=== PATIENT | female | born 1995 | race Caucasian/White ===

== ENCOUNTER 2019-09-29 12:37 | Emergency (ER) | payer OTHER ==
[~2019-09-29] VITALS: Ht 165.1 cm; Wt 68.2 kg
[2019-09-29] MEDS ORDERED: anxiety med (12:51)
[2019-09-29] MEDS ORDERED: sleeping med (12:51)
[2019-09-29] MEDS ORDERED: TETRACAINE 0.5% OPHTH SOLN 4ML OS ONE (13:15)
[2019-09-29 14:24] VITALS: BP 119/65
== END 2019-09-29 14:26 | disposition home or self-care (01) ==
LOC: M ED 12:37
DX: Z77.098 Contact with and (suspected) exposure to other hazardous, chiefly nonmedicinal, chemicals (principal); Z87.891 Personal history of nicotine dependence